=== PATIENT | male | born 1980 | race Caucasian/White ===

== ENCOUNTER → 2017-01-01 | Outpatient (CLI) | payer OTHER | LOC: LGSMG 09:23 | DX: N02.8 Recurrent and persistent hematuria with other morphologic changes (principal) ==

== ENCOUNTER → 2017-04-15 | Outpatient (CLI) | payer OTHER | LOC: LGSMG 12:57 | DX: N00.9 Acute nephritic syndrome with unspecified morphologic changes (principal) ==

== ENCOUNTER → 2017-05-18 | Outpatient (CLI) | payer OTHER | END | disposition disaster alternative care site (69) | LOC: GRAD 08:10 | DX: R59.1 Generalized enlarged lymph nodes (principal); R19.7 Diarrhea, unspecified; R10.9 Unspecified abdominal pain; R03.0 Elevated blood-pressure reading, without diagnosis of hypertension; Z85.060 Personal history of malignant carcinoid tumor of small intestine | CPT/HCPCS: A9572 ==